=== PATIENT | female | born 1975 | race Asian ===

== ENCOUNTER → 2017-01-04 | Outpatient (CLI) | payer OTHER | END | disposition home or self-care (01) | LOC: EMPHLTH 11:39 | PROVIDERS: ATTEND Internal Medicine | DX: R76.11 Nonspecific reaction to tuberculin skin test without active tuberculosis (principal) ==

== ENCOUNTER 2020-01-29 11:16 | Emergency (ER) | payer BC, OTHER ==
[~2020-01-29] VITALS: Ht 152.4 cm; Wt 63.6 kg
[2020-01-29 11:19] VITALS: BP 125/70
== END 2020-01-29 12:15 | disposition home or self-care (01) ==
LOC: EMS 11:22
DX: J06.9 Acute upper respiratory infection, unspecified (principal); Z20.828 Contact with and (suspected) exposure to other viral communicable diseases
CPT/HCPCS: 87635